=== PATIENT | female | born 1970 | race Caucasian/White ===

== ENCOUNTER 2024-07-24 14:17 | Outpatient (CLI) | payer OTHER, SELFPAY | END 2024-07-24 14:18 | disposition home or self-care (01) | LOC: NFLDREF 14:18 | PROVIDERS: Visit Provider Family Medicine | DX: E78.5 Hyperlipidemia, unspecified (principal) | CPT/HCPCS: 80061 ==

== ENCOUNTER 2024-11-13 08:10 | Outpatient (CLI) | payer OTHER, SELFPAY | END 2024-11-13 08:11 | disposition home or self-care (01) | LOC: NFLDREF 11-17 14:11 | PROVIDERS: PCP Family Medicine; Visit Provider Family Medicine | DX: E78.2 Mixed hyperlipidemia (principal); I10 Essential (primary) hypertension; R53.83 Other fatigue; I45.81 Long QT syndrome; Z13.71 Encounter for nonprocreative screening for genetic disease carrier status | CPT/HCPCS: 80053; 80061; 81240; 82607; 84443; 85520; 85525; 85598; 85610; 85613; 85670; 85730 ==

== ENCOUNTER 2024-11-20 10:45 | Outpatient (CLI) | payer OTHER, SELFPAY ==
[2024-11-24 23:19] LABS: HPV Source Cervical/Vag
== END 2024-11-20 10:46 | disposition home or self-care (01) ==
PROVIDERS: PCP Family Medicine; Visit Provider Family Medicine
DX: Z12.4 Encounter for screening for malignant neoplasm of cervix (principal); Z11.51 Encounter for screening for human papillomavirus (HPV)
CPT/HCPCS: 87624; 87625; 88141; 88142